=== PATIENT | female | born 1955 | race Two or more races ===

== ENCOUNTER 2023-12-09 08:45 | Inpatient (IN) | payer OTHER ==
[~2023-12-09] VITALS: Ht 170.2 cm; Wt 90.5 kg
[2023-12-09 09:34] LABS: Basophils # (auto) 0.1 10 ^3/uL (0-0.2); Basophils % (auto) 0.8 % (0.0-2.0); Eosinophils # (auto) 0.2 10 ^3/uL (0-0.8); Eosinophils % (auto) 2.1 % (0.0-7.0); Hematocrit 40.3 % (36.0-46.0); Hemoglobin 13.6 g/dL (12.2-16.2); Lymphocytes # (auto) 2.7 10 ^3/uL (0.4-5.4); Lymphocytes % (auto) 34.4 % (10.0-50.0); Mean Corpuscular Hemoglobin 33.6 pg (28.0-32.0); Mean Corpuscular Hgb Conc. 33.8 g/dL (32.0-36.0); Mean Corpuscular Volume 99.4 fL (80.0-100.0); Monocytes # (auto) 0.7 10 ^3/uL (0-1.3); Monocytes % (auto) 9.1 % (0.0-12.0); Neutrophils # (auto) 4.3 10 ^3/uL (1.6-8.6); Neutrophils % (auto) 53.6 % (37.0-80.0); Nucleated Red Blood Cells % 0.2 %; Red Blood Cells 4.05 10^6/uL (4.0-5.20); Red Cell Distribution Width 12.9 % (11.8-14.3); White Blood Cell 7.9 10^3/uL (4.4-10.8)
[2023-12-09 09:56] LABS: Alanine Aminotransferase 56 U/L (7-40); Albumin 4.4 g/dL (3.2-4.8); Alkaline Phosphatase 85 U/L (46-116); Anion Gap 8 (5-15); Aspartate Aminotransferase 44 U/L (13-40); BUN/Creatinine Ratio 15.9 (10.0-20.0); Bilirubin, Total 1.4 mg/dL (0.2-1.0); Blood Urea Nitrogen 10 mg/dL (9-23); Calcium 9.8 mg/dL (8.5-10.1); Carbon Dioxide 25 mmol/L (20-30); Chloride 109 mmol/L (98-107); Glucose 112 mg/dL (74-106); Potassium 3.8 mmol/L (3.5-5.1); Sodium 142 mmol/L (136-145); Total Protein 7.2 g/dL (5.7-8.2)
[2023-12-09 09:56] LABS: INR 0.96 (0.9-1.15); Prothrombin Time 10.1 sec (9.3-11.8)
[2023-12-09 09:56] LABS: Urine Bacteria NONE SEEN /hpf (None Seen); Urine Blood Negative /uL (Negative); Urine Clarity Clear (Clear); Urine Protein, UAD Negative (Negative); Urine Specific Gravity 1.004 (1.001-1.035); Urine Urobilinogen Normal (Negative); Urine WBC <1 /hpf (0 - 5)
[2023-12-09 09:57] LABS: Urine Color Yellow (Yellow)
[2023-12-09] MEDS: TETANUS-DIPTH-ACEL PERTUSSIS 0.5ML SYR Tdap IM ONE (12:18)
[2023-12-09] MEDS ORDERED: ACETAMINOPHEN 325 MG TAB PO PRN (15:45)
[2023-12-09] MEDS ORDERED: ONDANSETRON HCL 4 MG/2 ML VIAL IV PRN (15:45)
[2023-12-09 16:48] LABS: Erythrocyte Sedimentation Rate 21 mm/hr (0-20)
[2023-12-09] MEDS: VANCOMYCIN 1GM/200ML 200 ML IV ONE (19:40)
[2023-12-09] MEDS: HYDROcodone-ACET 5/325MG TAB PO PRN (19:52)
[2023-12-09 22:01] VITALS: BP 145/80; PULSE 80; RESP 17; TEMP 97.6; O2SAT 95
[2023-12-09] MEDS: SODIUM CHLOR 0.9% PF (SALINE LOCK) 10ML VIAL/SYR IV SCH (22:42)
[2023-12-09] MEDS: ceFAZolin 1GM/50ML 50 ML IV SCH (22:42)
[2023-12-10] MEDS ORDERED: METF-370 PO (02:37)
[2023-12-10] MEDS ORDERED: ATOR10TA52 PO (02:37)
[2023-12-10] MEDS ORDERED: LISI10TA34 PO (02:37)
[2023-12-10] MEDS: HYDROmorphone HCL 2 MG/ML VL/or syr IV PRN (03:48)
[2023-12-10 05:00] VITALS: BP 127/81; PULSE 81; RESP 16; TEMP 98.1; O2SAT 96
[2023-12-10 08:00] VITALS: BP 145/76; PULSE 82; RESP 16; TEMP 97.7; O2SAT 94
[2023-12-10 08:55] VITALS: BP 145/76; PULSE 82; RESP 16; TEMP 97.7; O2SAT 94
[2023-12-10] MEDS: ENOXAPARIN SOD 40 MG/0.4 ML SYRINGE SC SCH (09:35)
[2023-12-10 12:50] VITALS: BP_SYST 118; BP_SYST 130; BP_DIAS 61; BP_DIAS 74; PULSE 62; PULSE 77; RESP 16; RESP 18; TEMP 97.6; TEMP 97.7; O2SAT 94; O2SAT 97
[2023-12-10] MEDS: LISINOPRIL 20 MG TAB PO ONE (13:30)
[2023-12-10] MEDS: metFORMIN HYDROCHLORIDE 500 MG TAB PO SCH (17:01)
[2023-12-10] MEDS: ATORVASTATIN 20 MG TAB PO SCH (21:13)
[2023-12-10 21:55] VITALS: BP 124/63; PULSE 78; RESP 19; TEMP 98.1; O2SAT 91
[2023-12-11] VITALS (7 sets, daily range): BP systolic 121–148; BP diastolic 66–88; PULSE 70–96; RESP 16–20; TEMP 97.8–98.8; O2SAT 93–95
[2023-12-11] MEDS: LISINOPRIL 20 MG TAB PO SCH (08:38)
[2023-12-11] MEDS: DOCUSATE SOD 100 MG CAP PO PRN (08:49)
[2023-12-11] MEDS ORDERED: VANCOMYCIN PER PHARMACY 0 MG IV SCH (13:00)
[2023-12-11] MEDS: VANCOMYCIN 1GM/200ML 200 ML IV ONE (14:41)
[2023-12-11] MEDS: CLINDAMYCIN HCL 150 MG CAP PO ONE ×2 (16:45→17:00)
[2023-12-11] MEDS: CLINDAMYCIN HCL 150 MG CAP PO SCH (18:49)
[2023-12-11] MEDS ORDERED: CLINDAMYCIN HCL 150 MG CAP PO SCH (22:00)
[2023-12-12 05:00] VITALS: BP 119/66; PULSE 85; RESP 18; TEMP 98.2; O2SAT 93
[2023-12-12 07:36] VITALS: PULSE 80; RESP 15
[2023-12-12 09:00] VITALS: BP 118/58; PULSE 84; RESP 18; TEMP 98.3; O2SAT 95
[2023-12-12] MEDS ORDERED: CLIN300C70 PO (11:14)
[2023-12-12] MEDS ORDERED: HYDR-4902 PO (11:14)
[2023-12-12 13:22] VITALS: BP 124/71; PULSE 84; RESP 19; TEMP 98.3; O2SAT 94
[2023-12-12 14:31] VITALS: BP 130/65; TEMP 36.8
== END 2023-12-12 16:00 | disposition home or self-care (01) | DRG 603 ==
LOC: ER 08:45 → OVERFLOW 15:33 → CENTRAL 21:35 → WEST WING 12-10 16:15
PROVIDERS: ADMIT Internal Medicine; ATTEND Family Medicine
PROC: 3E0234Z Introduction of Serum, Toxoid and Vaccine into Muscle, Percutaneous Approach (ICD-10-PCS; principal; 2023-12-09)
DX: L03.115 Cellulitis of right lower limb (principal); E11.9 Type 2 diabetes mellitus without complications; E78.00 Pure hypercholesterolemia, unspecified; I10 Essential (primary) hypertension; Z23 Encounter for immunization
CPT/HCPCS: 36415; 73590; 73700; 80053; 81001; 82565; 83605; 85025; 85610; 85652; 86141; 87040; 87070; 87205; 90471; 90715; 93005; 93971; 96365; 97110; 97116; 97163; 97530; G0378

== ENCOUNTER 2024-02-14 17:17 | Inpatient (IN) | payer OTHER ==
[~2024-02-14] VITALS: Ht 170.2 cm; Wt 99.7 kg
[~2024-02-14 17:17] MED LIST: ATOR10TA52 PO; CLIN1CAP70 PO; HYDR-4902 PO; LISI10TA34 PO; METF-370 PO
[2024-02-14 18:22] LABS: Basophils # (auto) 0.1 10 ^3/uL (0-0.2); Basophils % (auto) 0.8 % (0.0-2.0); Eosinophils # (auto) 0.2 10 ^3/uL (0-0.8); Eosinophils % (auto) 2.4 % (0.0-7.0); Hematocrit 40.5 % (36.0-46.0); Hemoglobin 13.6 g/dL (12.2-16.2); Lymphocytes # (auto) 2.6 10 ^3/uL (0.4-5.4); Lymphocytes % (auto) 35.8 % (10.0-50.0); Mean Corpuscular Hemoglobin 33.3 pg (28.0-32.0); Mean Corpuscular Hgb Conc. 33.5 g/dL (32.0-36.0); Mean Corpuscular Volume 99.4 fL (80.0-100.0); Monocytes # (auto) 0.7 10 ^3/uL (0-1.3); Monocytes % (auto) 9.9 % (0.0-12.0); Neutrophils # (auto) 3.7 10 ^3/uL (1.6-8.6); Neutrophils % (auto) 51.1 % (37.0-80.0); Red Blood Cells 4.07 10^6/uL (4.0-5.20); White Blood Cell 7.2 10^3/uL (4.4-10.8)
[2024-02-14 18:32] LABS: Alanine Aminotransferase 27 U/L (7-40); Albumin 4.6 g/dL (3.2-4.8); Alkaline Phosphatase 92 U/L (46-116); Anion Gap 6 (5-15); Aspartate Aminotransferase 26 U/L (13-40); BUN/Creatinine Ratio 18.5 (10.0-20.0); Blood Urea Nitrogen 12 mg/dL (9-23); Calcium 10.1 mg/dL (8.5-10.1); Carbon Dioxide 28 mmol/L (20-30); Chloride 108 mmol/L (98-107); Glucose 108 mg/dL (74-106); Potassium 3.8 mmol/L (3.5-5.1); Sodium 142 mmol/L (136-145)
[2024-02-14 18:33] LABS: Bilirubin, Total 1.2 mg/dL (0.2-1.0); Total Protein 7.5 g/dL (5.7-8.2)
[2024-02-14 18:58] LABS: Urine Bacteria None Seen /hpf (None Seen)
[2024-02-14 19:31] LABS: Urine Blood Negative /uL (Negative); Urine Clarity Clear (Clear); Urine Color Light-Yellow (Yellow); Urine Protein, UAD Negative (Negative); Urine Specific Gravity 1.009 (1.001-1.035); Urine Urobilinogen Normal (Negative); Urine WBC 3 /hpf (0 - 5)
[2024-02-14 20:58] LABS: Erythrocyte Sedimentation Rate 30 mm/hr (0-20)
[2024-02-14] MEDS: CLINDAMYCIN 900MG IV 50 ML IV ONE (21:49)
[2024-02-14] MEDS: PIPERACILLIN-TAZOB 3.375GM 100 ML IV ONE (22:08)
[2024-02-14 22:27] VITALS: PULSE 96; RESP 19; O2SAT 93
[2024-02-14] MEDS ORDERED: hydrALAZINE HCL 20 MG/ML VL IV PRN (22:45)
[2024-02-14] MEDS ORDERED: VANCOMYCIN PER PHARMACY 0 MG IV SCH (22:45)
[2024-02-14] MEDS ORDERED: ONDANSETRON HCL 4 MG/2 ML VIAL IV PRN (22:45)
[2024-02-14] MEDS ORDERED: ACETAMINOPHEN 325 MG TAB PO PRN (22:45)
[2024-02-14] MEDS ORDERED: DEXTROSE (50%) 50ML SYRG IV PRN (22:45)
[2024-02-14] MEDS ORDERED: NITROGLYCERIN 0.4 MG SL TAB SL PRN (23:15)
[2024-02-14] MEDS ORDERED: MORPHINE SULFATE INJ 2 MG/ml SYRG IV PRN (23:15)
[2024-02-15] VITALS (8 sets, daily range): BP systolic 122–151; BP diastolic 71–86; PULSE 83–94; RESP 14–18; TEMP 97.5–98.9; O2SAT 94–97
[2024-02-15] MEDS: HYDROcodone-ACET 5/325MG TAB PO PRN ×2 (00:22→22:09)
[2024-02-15] MEDS: VANCOMYCIN 1GM/200ML 200 ML IV ONE (01:09)
[2024-02-15] MEDS ORDERED: OMEP20TA PO (03:37)
[2024-02-15 06:15] LABS: Basophils # (auto) 0.1 10 ^3/uL (0-0.2); Basophils % (auto) 0.8 % (0.0-2.0); Eosinophils # (auto) 0.2 10 ^3/uL (0-0.8); Eosinophils % (auto) 2.5 % (0.0-7.0); Hematocrit 37.6 % (36.0-46.0); Hemoglobin 12.8 g/dL (12.2-16.2); Lymphocytes # (auto) 2.1 10 ^3/uL (0.4-5.4); Lymphocytes % (auto) 26.6 % (10.0-50.0); Mean Corpuscular Hemoglobin 33.9 pg (28.0-32.0); Mean Corpuscular Hgb Conc. 34.1 g/dL (32.0-36.0); Mean Corpuscular Volume 99.5 fL (80.0-100.0); Monocytes # (auto) 0.8 10 ^3/uL (0-1.3); Monocytes % (auto) 10.6 % (0.0-12.0); Neutrophils # (auto) 4.8 10 ^3/uL (1.6-8.6); Neutrophils % (auto) 59.5 % (37.0-80.0); Red Blood Cells 3.78 10^6/uL (4.0-5.20)
[2024-02-15] MEDS: PIPERACILLIN-TAZOB 3.375GM 100 ML IV SCH (06:26)
[2024-02-15] MEDS: SODIUM CHLOR 0.9% PF (SALINE LOCK) 10ML VIAL/SYR IV SCH (06:32)
[2024-02-15] MEDS: InsuLIN REG 1unit/0.01ml Soln (100units/ml) SC SCH (06:32)
[2024-02-15] MEDS: ACCU-CHEK COMFORT CURVE STRIP VI SCH (06:32)
[2024-02-15 06:40] LABS: Alanine Aminotransferase 32 U/L (7-40); Albumin 4.1 g/dL (3.2-4.8); Alkaline Phosphatase 79 U/L (46-116); Anion Gap 9 (5-15); Aspartate Aminotransferase 22 U/L (13-40); BUN/Creatinine Ratio 21.2 (10.0-20.0); Blood Urea Nitrogen 14 mg/dL (9-23); Calcium 9.8 mg/dL (8.7-10.4); Carbon Dioxide 25 mmol/L (20-30); Chloride 108 mmol/L (98-107); Glucose 107 mg/dL (74-106); Potassium 3.9 mmol/L (3.5-5.1); Sodium 142 mmol/L (136-145)
[2024-02-15 06:41] LABS: Bilirubin, Total 1.3 mg/dL (0.2-1.0); Total Protein 6.6 g/dL (5.7-8.2)
[2024-02-15] MEDS: ENOXAPARIN SOD 40 MG/0.4 ML SYRINGE SC SCH (09:16)
[2024-02-15] MEDS: LISINOPRIL 5 MG TAB PO SCH (09:17)
[2024-02-15] MEDS: diphenhdrAMINE HCL 25 MG CAP PO ONE (09:49)
[2024-02-15] MEDS: FAMOTIDINE (10MG/ML) 2ML VL IV ONE (12:21)
[2024-02-15] MEDS: methylPREDNISolone SOD SUCC 125 MG/2 ML VL IV ONE (12:21)
[2024-02-15] MEDS: AMPICILLIN & SULBACTAM SODIUM 3 GM in SODIUM CHL 0.9% 100 ML IV SCH ×2 (15:28→21:56)
[2024-02-15] MEDS: VANCOMYCIN 1GM/200ML 200 ML IV SCH (16:54)
[2024-02-15] MEDS: diphenhdrAMINE HCL 25 MG CAP PO PRN (17:52)
[2024-02-15] MEDS: FLORASTOR (S. BOULARDII) 250 MG CAP PO SCH (21:56)
[2024-02-16 01:00] VITALS: BP 126/89; PULSE 100; RESP 14; TEMP 98.5; O2SAT 95
[2024-02-16 05:00] VITALS: BP 140/75; PULSE 93; RESP 14; TEMP 98.3; O2SAT 95
[2024-02-16] MEDS: DOCUSATE SOD 100 MG CAP PO PRN (06:21)
[2024-02-16 08:00] VITALS: BP 120/59; PULSE 78; RESP 20; TEMP 98.1; O2SAT 96
[2024-02-16 12:00] VITALS: BP 137/78; PULSE 79; RESP 20; TEMP 98; O2SAT 90
[2024-02-16 16:00] VITALS: BP 144/88; PULSE 79; RESP 20; TEMP 97.9; O2SAT 94
[2024-02-16 20:00] VITALS: PULSE 78; RESP 18; O2SAT 96
[2024-02-16] MEDS: GABAPENTIN 300 MG CAP PO SCH (22:03)
[2024-02-17 05:00] VITALS: BP 142/77; PULSE 75; RESP 18; TEMP 98.1; O2SAT 95
[2024-02-17 06:24] LABS: Basophils # (auto) 0.1 10 ^3/uL (0-0.2); Basophils % (auto) 1.1 % (0.0-2.0); Eosinophils # (auto) 0.2 10 ^3/uL (0-0.8); Eosinophils % (auto) 3.8 % (0.0-7.0); Hematocrit 36.3 % (36.0-46.0); Hemoglobin 12.4 g/dL (12.2-16.2); Lymphocytes # (auto) 2.9 10 ^3/uL (0.4-5.4); Lymphocytes % (auto) 46.1 % (10.0-50.0); Mean Corpuscular Hemoglobin 33.6 pg (28.0-32.0); Mean Corpuscular Hgb Conc. 34.1 g/dL (32.0-36.0); Mean Corpuscular Volume 98.6 fL (80.0-100.0); Monocytes # (auto) 0.5 10 ^3/uL (0-1.3); Monocytes % (auto) 8.4 % (0.0-12.0); Neutrophils # (auto) 2.5 10 ^3/uL (1.6-8.6); Neutrophils % (auto) 40.6 % (37.0-80.0); Red Blood Cells 3.68 10^6/uL (4.0-5.20); Red Cell Distribution Width 12.9 % (11.8-14.3); White Blood Cell 6.2 10^3/uL (4.4-10.8)
[2024-02-17 06:34] LABS: Alanine Aminotransferase 38 U/L (7-40); Alkaline Phosphatase 74 U/L (46-116); Anion Gap 9 (5-15); BUN/Creatinine Ratio 17.7 (10.0-20.0); Blood Urea Nitrogen 11 mg/dL (9-23); Calcium 9.6 mg/dL (8.5-10.1); Carbon Dioxide 25 mmol/L (20-30); Chloride 110 mmol/L (98-107); Glucose 97 mg/dL (74-106); Potassium 3.7 mmol/L (3.5-5.1); Sodium 144 mmol/L (136-145)
[2024-02-17 06:35] LABS: Albumin 3.9 g/dL (3.2-4.8); Aspartate Aminotransferase 35 U/L (13-40)
[2024-02-17 06:36] LABS: Bilirubin, Total 0.7 mg/dL (0.2-1.0); Total Protein 6.4 g/dL (5.7-8.2)
[2024-02-17 08:00] VITALS: BP 144/87; PULSE 73; RESP 18; TEMP 98; O2SAT 94
[2024-02-17] MEDS: VANCOMYCIN 1GM/200ML 200 ML IV SCH (09:35)
[2024-02-17 12:00] VITALS: BP 169/83; PULSE 78; RESP 20; TEMP 97.5; O2SAT 93
[2024-02-17 16:00] VITALS: BP 148/90; PULSE 85; RESP 20; TEMP 97.7; O2SAT 94
[2024-02-17] MEDS ORDERED: diphenhdrAMINE HCL 25 MG CAP PO PRN (17:45)
[2024-02-17 20:00] VITALS: BP 125/65; PULSE 86; RESP 20; TEMP 98.6; O2SAT 91
[2024-02-17 21:00] VITALS: BP 125/65; PULSE 86; RESP 20; TEMP 98.6; O2SAT 91
[2024-02-18 04:41] VITALS: BP 122/80; PULSE 92; RESP 16; TEMP 98.4; O2SAT 98
[2024-02-18 06:20] LABS: Basophils # (auto) 0.1 10 ^3/uL (0-0.2); Basophils % (auto) 1.2 % (0.0-2.0); Eosinophils # (auto) 0.3 10 ^3/uL (0-0.8); Eosinophils % (auto) 4.3 % (0.0-7.0); Hematocrit 38.3 % (36.0-46.0); Hemoglobin 13.1 g/dL (12.2-16.2); Lymphocytes # (auto) 2.9 10 ^3/uL (0.4-5.4); Lymphocytes % (auto) 48.9 % (10.0-50.0); Mean Corpuscular Hemoglobin 33.8 pg (28.0-32.0); Mean Corpuscular Hgb Conc. 34.1 g/dL (32.0-36.0); Mean Corpuscular Volume 99.3 fL (80.0-100.0); Monocytes # (auto) 0.6 10 ^3/uL (0-1.3); Monocytes % (auto) 9.7 % (0.0-12.0); Neutrophils # (auto) 2.1 10 ^3/uL (1.6-8.6); Neutrophils % (auto) 35.9 % (37.0-80.0); Nucleated Red Blood Cells % 0.1 %; Red Blood Cells 3.86 10^6/uL (4.0-5.20); Red Cell Distribution Width 13.1 % (11.8-14.3); White Blood Cell 5.9 10^3/uL (4.4-10.8)
[2024-02-18 07:02] LABS: Alanine Aminotransferase 33 U/L (7-40); Albumin 3.9 g/dL (3.2-4.8); Alkaline Phosphatase 78 U/L (46-116); Anion Gap 9 (5-15); Aspartate Aminotransferase 32 U/L (13-40); BUN/Creatinine Ratio 15.2 (10.0-20.0); Bilirubin, Total 0.8 mg/dL (0.2-1.0); Blood Urea Nitrogen 10 mg/dL (9-23); Calcium 9.5 mg/dL (8.5-10.1); Carbon Dioxide 25 mmol/L (20-30); Chloride 107 mmol/L (98-107); Glucose 104 mg/dL (74-106); Potassium 3.7 mmol/L (3.5-5.1); Sodium 141 mmol/L (136-145); Total Protein 6.5 g/dL (5.7-8.2)
[2024-02-18 08:00] VITALS: PULSE 84; RESP 20; O2SAT 90
[2024-02-18 08:25] VITALS: BP 126/71; PULSE 84; RESP 20; TEMP 98; O2SAT 90
[2024-02-18 12:40] VITALS: BP 143/81; PULSE 85; RESP 18; TEMP 97.6; O2SAT 93
[2024-02-18] MEDS ORDERED: AMPI500C9 PO (15:40)
[2024-02-18] MEDS ORDERED: SACC250C PO (15:40)
[2024-02-18] MEDS ORDERED: CIPR500T4 PO (15:40)
[2024-02-18] MEDS ORDERED: GABA-1250 PO (15:40)
[2024-02-18 16:38] VITALS: BP 143/81; PULSE 85; RESP 18; TEMP 97.6; O2SAT 93
[2024-02-18 17:00] VITALS: BP 143/75; PULSE 81; RESP 17; TEMP 97.9; O2SAT 96
== END 2024-02-18 18:17 | disposition home or self-care (01) | DRG 603 ==
LOC: ER 17:17 → OVERFLOW 23:09 → WEST WING 02-15 02:39
PROVIDERS: ADMIT Nurse Practitioner Family; ATTEND Nurse Practitioner Acute Care
DX: L03.115 Cellulitis of right lower limb (principal); I10 Essential (primary) hypertension; E66.9 Obesity, unspecified; R19.7 Diarrhea, unspecified; E78.00 Pure hypercholesterolemia, unspecified; E11.9 Type 2 diabetes mellitus without complications; S81.801A Unspecified open wound, right lower leg, initial encounter; X58.XXXA Exposure to other specified factors, initial encounter; T78.49XA Other allergy, initial encounter; Z68.34 Body mass index [BMI] 34.0-34.9, adult; Z79.899 Other long term (current) drug therapy; Y93.89 Activity, other specified; Y92.89 Other specified places as the place of occurrence of the external cause; Y99.8 Other external cause status
CPT/HCPCS: 36415; 71045; 73700; 73718; 80053; 80202; 81001; 82565; 82962; 83605; 83880; 84484; 85025; 85379; 85652; 87040; 87077; 87186; 87205; 96365; 96367; 96368; G0378; J1815; J2543; J3490